=== PATIENT | male | born 1985 | race Caucasian/White ===

== ENCOUNTER 2022-02-06 20:22 | Emergency (ER) | payer OTHER ==
[2022-02-06 20:53] LABS: BASOPHIL 0.8 % (0-2); EOSINOPHIL 2.7 % (0-5); HCT 41.1 % (42.0-52.0); HGB 14.3 g/dl (13.2-18.0); MCH 32.4 pg (25.0-31.0); MCHC 34.8 g/dL (32.0-36.0); MCV 93.2 fL (78.0-100.0); MONOCYTE 4.4 % (0-12); MPV 8.4 fL (6.0-9.5); NEUTROPHIL 51.5 % (41-80); NRBC 0; PLT 327 K/uL (150-400); RBC 4.41 M/uL (4.70-6.00); RDW 11.8 % (11.5-14.0); WBC 6.6 K/uL (4.0-10.5)
[2022-02-06 20:54] LABS: LYMPHOCYTE 40.1 % (15-48)
[2022-02-06 21:25] LABS: BILIRUBIN - TOTAL 0.7 mg/dL (0.2-1.0); BUN/CREAT RATIO (CALC) 20.5 RATIO; CREATININE 0.73 mg/dL (0.67-1.17)
[2022-02-06 21:37] LABS: BILIRUBIN NEGATIVE (NEGATIVE); BLOOD NEGATIVE Ery/uL (NEGATIVE); CLARITY CLEAR (CLEAR); COLOR YELLOW (YELLOW); GLUCOSE (U) NORMAL (NORMAL); LEUKOCYTES NEGATIVE Leu/uL (NEGATIVE); NITRITE NEGATIVE (NEGATIVE); PROTEIN 2+ mg/dL (NEGATIVE); SPECIFIC GRAVITY 1.015 (1.001-1.030); pH 8.5 (5.0-9.0)
[2022-02-06 21:40] LABS: AMORPHOUS PHOSPHATE CRYSTALS LARGE
[2022-02-06 21:41] LABS: BACTERIA 1+
[2022-02-06 21:48] LABS: ECSTASY (MDMA) NEGATIVE (NEGATIVE); MARIJUANA (THC) POSITIVE (NEGATIVE); METHADONE NEGATIVE (NEGATIVE)
[2022-02-06 21:49] LABS: AMPHETAMINES NEGATIVE (NEGATIVE); BARBITURATES NEGATIVE (NEGATIVE); OPIATES NEGATIVE (NEGATIVE); OXYCODONE NEGATIVE (NEGATIVE)
[2022-02-07] MEDS ORDERED: NORCO 5-325 TA1 EACH PO (00:13)
[2022-02-07] MEDS ORDERED: ONDANSETRON ODT4 MG PO (00:13)
[2022-02-07] MEDS ORDERED: PHENERGAN25 M1 PO (00:13)
== END 2022-02-07 00:25 | disposition home or self-care (01) ==
LOC: FER 20:22 → FMS 23:03 → FER 23:03
PROVIDERS: Physician Assistant
DX: R10.13 Epigastric pain (principal); R10.30 Lower abdominal pain, unspecified; R11.2 Nausea with vomiting, unspecified; F17.210 Nicotine dependence, cigarettes, uncomplicated; Z20.822 Contact with and (suspected) exposure to COVID-19; Z88.0 Allergy status to penicillin; Z88.8 Allergy status to other drugs, medicaments and biological substances
CPT/HCPCS: 36415; 80053; 80305; 81001; 83690; 85025; J1100; J2405; J2550; J7030; Q9967; U0002

== ENCOUNTER 2022-02-08 17:18 | Emergency (ER) | payer OTHER ==
[~2022-02-08 17:18] MED LIST: NORCO 5-325 TA1 EACH PO; ONDANSETRON ODT4 MG PO; PHENERGAN25 M1 PO
[2022-02-08 19:45] LABS: BASOPHIL 0.2 % (0-2); EOSINOPHIL 0 % (0-5); HCT 44.7 % (42.0-52.0); HGB 15.1 g/dl (13.2-18.0); LYMPHOCYTE 20.9 % (15-48); MCH 29.4 pg (25.0-31.0); MCHC 33.8 g/dL (32.0-36.0); MONOCYTE 7.9 % (0-12); MPV 10.4 fL (6.0-9.5); NEUTROPHIL 70.8 % (41-80); NRBC 0; PLT 241 K/uL (150-400); RBC 5.13 M/uL (4.70-6.00); RDW 12.4 % (11.5-14.0); WBC 9.6 K/uL (4.0-10.5)
[2022-02-08 19:51] LABS: MCV 87.1 fL (78.0-100.0)
[2022-02-08 19:52] LABS: ALBUMIN 3.6 g/dL (3.4-5.0); BILIRUBIN - TOTAL 0.5 mg/dL (0.2-1.0); BUN/CREAT RATIO (CALC) 17.6 RATIO; CREATININE 0.68 mg/dL (0.67-1.17); GLOBULIN (CALCULATION) 3.8 g/dL; MAGNESIUM 2.1 mg/dL (1.8-2.4); POTASSIUM 3.7 mmol/L (3.5-5.1); TOTAL PROTEIN 7.4 g/dL (6.4-8.2)
== END 2022-02-09 00:29 | disposition left against medical advice (07) ==
LOC: FER 17:18
PROVIDERS: Internal Medicine
DX: R10.10 Upper abdominal pain, unspecified (principal); R11.2 Nausea with vomiting, unspecified; F17.210 Nicotine dependence, cigarettes, uncomplicated; Z88.0 Allergy status to penicillin; Z88.4 Allergy status to anesthetic agent; Z53.29 Procedure and treatment not carried out because of patient's decision for other reasons; Z28.310 Unvaccinated for COVID-19
CPT/HCPCS: 36415; 80053; 83690; 83735; 84145; 85025; J1100; J1630; J2550; J7120; Q9967